=== PATIENT | female | born 1990 | race Caucasian/White ===

== ENCOUNTER 2017-10-04 08:17 | Emergency (ER) | payer OTHER ==
[~2017-10-04] VITALS: Ht 165.1 cm; Wt 71.7 kg
[2017-10-04 08:22] VITALS: Ht 165.1 cm; Wt 71.7 kg
[2017-10-04 09:46] LABS: BASOPHIL % 1.1 % (0-2); PLATELET COUNT 291 x10^3mcL (130-400); RED CELL DISTRIBUTION WIDTH 12.9 % (11.5-14.5)
[2017-10-04 10:00] LABS: CALCIUM 8.9 mg/dL (8.5-10.1); CARBON DIOXIDE 25.2 mmol/L (21-32); CHLORIDE SERUM 102 mmol/L (98-107); CREATININE SERUM 0.8 mg/dL (0.6-1.0); GFR1 > 60 mL/min; GLUCOSE SERUM 101 mg/dL (74-106); POTASSIUM SERUM 3.6 mmol/L (3.5-5.1); SODIUM SERUM 136 mmol/L (136-145)
[2017-10-04 10:50] VITALS: BP 118/63
[2017-10-04 11:42] LABS: UA SPECIFIC GRAVITY >=1.030 (1.005-1.035); microscopic required? YES; urine erythrocyte 1+ (NEGATIVE)
== END 2017-10-04 12:11 | disposition home or self-care (01) ==
LOC: ED 08:17
PROVIDERS: Emergency Medicine
DX: O21.0 Mild hyperemesis gravidarum (principal); Z3A.01 Less than 8 weeks gestation of pregnancy; E86.0 Dehydration
CPT/HCPCS: J1200; J2765; J7030

== ENCOUNTER 2017-11-10 07:17 | Emergency (ER) | payer SELFPAY ==
[~2017-11-10] VITALS: Ht 165.1 cm; Wt 73.5 kg
[2017-11-10 07:44] VITALS: Ht 165.1 cm; Wt 73.5 kg
[2017-11-10 08:06] VITALS: BP 121/59
== END 2017-11-10 08:06 | disposition left against medical advice (07) ==
LOC: ED 07:17
DX: Z53.21 Procedure and treatment not carried out due to patient leaving prior to being seen by health care provider (principal)